=== PATIENT | male | born 1980 | race Caucasian/White ===

== ENCOUNTER → 2019-11-23 14:00 | Outpatient (CLI) | payer OTHER, SELFPAY ==
[2019-11-24 20:24] LABS: COVID19 Sendout Not Detected (Not Detect)
== END ==
PROVIDERS: Visit Provider Physician Assistant
DX: Z11.59 Encounter for screening for other viral diseases (principal)
CPT/HCPCS: 87635

== ENCOUNTER → 2021-06-19 09:25 | Outpatient (CLI) | payer OTHER, SELFPAY ==
[2021-06-19 10:46] LABS: COVID19 -Nasal RAPID Negative (Negative)
== END ==
PROVIDERS: PCP Nurse Practitioner Family; Visit Provider Surgery
DX: Z20.822 Contact with and (suspected) exposure to COVID-19 (principal); Z01.812 Encounter for preprocedural laboratory examination
CPT/HCPCS: 87635; C9803

== ENCOUNTER 2021-06-20 08:05 | Day surgery (SDC) | payer OTHER, SELFPAY ==
[2021-06-20 08:22] VITALS: BP 126/78; PULSE 77; RESP 16; TEMP 36.7; O2SAT 97; BMI 32.1
[2021-06-20] MEDS: LACTATED RINGERS 1,000 ML 42 ML IV (08:37)
--- NOTE | 2021-06-20 09:53 | PM.HP.1 ---
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 He initially had an incision and drainage for an abscess but has had intermittent flare-ups and drainage since then. Most recently had bit of a buildup in and drainage last week and now has just minimal drainage. Patient History Medical History (Updated 06/19/21 @ 09:25 by Ely Bryant MA) Anal fistula Diverticular disease Encounter for preprocedural laboratory examination Knee pain Myopia SHERI (obstructive sleep apnea) Regular astigmatism Family & Social History Family History (Updated 05/04/21 @ 13:08 by Nathalia Ruvalcaba RN) Father Hypertension Grandfather Hypertension Social History: household members spouse Tobacco & Substance use: Smoking Status Never smoker alcohol intake frequency holiday/special occasion Substance Use Type does not use Meds Home Medications and Allergies Home Medications Medication Instructions Recorded Confirmed Type carboxymethylcellulose sodium 0.5 1 drp EYE-BOTH DIRECTED ml 05/04/21 06/20/21 History % eye drops (Refresh Tears) psyllium [Metamucil (sugar)] 1 dose PO TID PRN 05/04/21 06/20/21 History Allergies Allergy/AdvReac Type Severity Reaction Status Date / Time No Known Drug Allergies Allergy Verified 05/04/21 12:57 Exam Vital Signs (past 8 hours): - 06/20/21 08:22 Temperature 98.1 F Pulse Rate 77 Respiratory Rate 16 Blood Pressure 126/78 Pulse Oximetry 97 Oxygen Delivery Method Room Air Const General: comfortable Resp Effort & Inspection: normal respiratory effort Assessment & Plan Assessment and plan (1) Anal fistula: Status: Acute Plan 40-year-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 We will proceed with an examination under anesthesia, possible fistulotomy, possible seton placement. Time Spent With Patient Critical Care time: I spent a total of [] minutes of critical care time on this patient's care today; this time is exclusive of procedural time.
--- NOTE | 2021-06-20 12:46 | SUR.PREOP ---
surgery canceled due to issue in OR. patient in stable condition. states understanding.
== END 2021-06-20 08:10 | disposition home or self-care (01) ==
PROVIDERS: PCP Nurse Practitioner Family; Referring Provider Surgery; Visit Provider Surgery
DX: Z53.09 Procedure and treatment not carried out because of other contraindication (principal)
CPT/HCPCS: 45990